=== PATIENT | male | born 1995 | race African-American/Black ===

== ENCOUNTER 2018-05-31 08:12 | Emergency (ER) | payer MEDICAID ==
[~2018-05-31] VITALS: Ht 172.7 cm; Wt 79.0 kg
[2018-05-31 08:28] VITALS: BP 149/88
== END 2018-05-31 12:04 | disposition left against medical advice (07) ==
LOC: ER 08:12
DX: Z53.21 Procedure and treatment not carried out due to patient leaving prior to being seen by health care provider (principal)